=== PATIENT | female | born 1980 | race Caucasian/White ===

== ENCOUNTER 2020-10-26 21:50 | Emergency (ER) | payer BC ==
[~2020-10-26] VITALS: Ht 165.1 cm; Wt 63.5 kg
[2020-10-26 22:05] VITALS: BP_SYST 159
[2020-10-26] MEDS ORDERED: ONDANSETRON 4 MG ODT TAB PO ONE (22:15)
[2020-10-26 22:29] LABS: BILIRUBIN,URINE 2+ (NEGATIVE); BLOOD, URINE 2+ (NEGATIVE); CLARITY/URINE SL CLOUDY (CLEAR); COLOR,URINE YELLOW (YELLOW); GLUCOSE,URINE NEGATIVE (NEGATIVE); KETONES,URINE 3+ (NEGATIVE); LEUKOCYTE ESTERASE ,URINE TRACE (NEGATIVE); NITRITE, URINE NEGATIVE (NEGATIVE); PROTEIN URINE 2+ (NEGATIVE); UROBILINOGEN,URINE 0.2 (0.2-1.0)
[2020-10-26] MEDS ORDERED: KETOROLAC TROMETHAMINE 60 MG/2 ML VIAL IM ONE (22:45)
[2020-10-26] MEDS ORDERED: KETOROLAC TROMETHAMINE 30 MG VIAL ONE (22:51)
[2020-10-26 22:53] LABS: BACTERIA,URINE FEW /HPF (None Seen)
[2020-10-27 01:18] LABS: CALCIUM 8.9 mg/dL (8.4-11.0); CREATININE 0.96 mg/dL (0.55-1.30); POTASSIUM 3.9 mmol/L (3.5-5.1)
[2020-10-27 01:23] LABS: BASOPHILS % (AUTO) 0.1 % (0.0-2.0); HEMATOCRIT 40.3 % (36-48); HEMOGLOBIN 13.3 g/dL (12.0-16.0); LYMPHOCYTES # (AUTO) 1.1 K/uL (1.0-5.5); MEAN CORPUSCULAR HEMOGLOBIN 31 pg (27-31); MEAN CORPUSCULAR HGB CONC 33 % (32-36); MEAN CORPUSCULAR VOLUME 95 fL (79.0-98.0); MONOCYTES # (AUTO) 0.9 K/uL (0.0-1.0); MONOCYTES % (AUTO) 6.3 % (1.7-9.3); NEUTROPHILS # (AUTO) 11.9 K/uL (1.8-7.7); NEUTROPHILS % (AUTO) 85.6 % (40.0-70.0); PLATELET COUNT (AUTO) 215 K/uL (130-430); RED BLOOD CELL COUNT(AUTO) 4.25 MIL/uL (4.2-6.2); RED CELL DISTRIBUTION WIDTH 12.7 % (9.0-15.0)
[2020-10-27 01:29] LABS: TOTAL BILIRUBIN 0.6 mg/dL (0.0-1.0)
[2020-10-27 01:45] VITALS: BP_SYST 150
== END 2020-10-27 01:45 | disposition home or self-care (01) ==
LOC: SED 21:50
DX: N39.0 Urinary tract infection, site not specified (principal); R11.10 Vomiting, unspecified
CPT/HCPCS: 36415; 76830; 76857; 80053; 81000; 81025; 83690; 85025; 87086; 96372; 99284; J1885; Q0162

== ENCOUNTER 2020-10-27 06:39 | Inpatient (IN) | payer BC, SELFPAY ==
[~2020-10-27] VITALS: Ht 165.1 cm; Wt 70.3 kg
[2020-10-27 06:40] VITALS: BP_SYST 130
--- NOTE | 2020-10-27 06:55 | NUR ---
PT PLACED IN ER BED 07 BE DLOW AND LOCKED WITH BED RAILS UP
--- NOTE | 2020-10-27 06:56 | NUR ---
PT RETURNED BACK TO ER AFTER BEING DISCHARGED AT 0145 PT STATES THAT HER LLQ PAIN 7/10 SHARP PAIN RADIATING TO HER BILATERAL LOWER BACK PT STATES SHE IS NAUSEA BUT NO VOMITING SINCE BEING DISCHARGED. PT HAS BEEN ABLE TO URINATE NO BLEEDING, NO BURNING OR STINGING OR DIFFICULTY URINATING. PT HAS NO MEDICAL HISTORY, NO KNOWN ALLERGIES, AND TAKES NO MEDICATIONS DAILY. PT VITAL SIGNS STABLE WILL CONTINUE TO MONITOR
--- NOTE | 2020-10-27 07:02 | NUR ---
ER MD DA SILVA AT BEDSIDE EVALUATING PT
--- NOTE | 2020-10-27 07:06 | NUR ---
BEDSIDE REPORT GIVEN TO TECHNOLOGY INSTRUCTOR ОЛЬГА WHO WILL ASSUME CARE OF PT
[2020-10-27] MEDS ORDERED: NACL 0.9% 1,000 ML IV ONE (07:15)
[2020-10-27] MEDS ORDERED: ONDANSETRON HCL 4 MG/2 ML VIAL IVP ONE (07:15)
[2020-10-27] MEDS ORDERED: MORPHINE 4 MG/ML INJ. SYRINGE IVP ONE (07:15)
--- NOTE | 2020-10-27 07:18 | NUR ---
Patient transported to radiology via WHEELCHAIR, accompanied by STAFF .
--- NOTE | 2020-10-27 07:25 | NUR ---
# 20 gauge angiocath placed to RAC . Use of asceptic technique. Opsite placed over site. Blood return noted. Blood for lab drawn from site. Flushed with 10 cc of normal saline. No evidence of infiltration noted. Patient tolerated well.
--- NOTE | 2020-10-27 07:30 | NUR ---
Returned from radiology, back to [facility].
--- NOTE | 2020-10-27 07:58 | NUR ---
Medicated per MD orders. IVF infusing with no s/s of infiltration at this time. Will cont to monitor
[2020-10-27] MEDS ORDERED: PIPERACILLIN/TAZO 3.375 GM in NS 50 ML IV ONE (08:30)
--- NOTE | 2020-10-27 08:45 | NUR ---
Radiology staff at for ultrasound.
[2020-10-27] MEDS ORDERED: PIPERACILLIN/TAZOBACTAM 3.375 GM/VIAL (ZOSYN) IV ONE (08:52)
[2020-10-27] MEDS ORDERED: ONDANSETRON HCL 4 MG/2 ML VIAL IVP PRN (10:30)
[2020-10-27] MEDS ORDERED: LR 1,000 ML IV ONE (10:30)
[2020-10-27] MEDS ORDERED: MORPHINE 2 MG/ML INJ. SYRINGE ONE (10:38)
[2020-10-27] MEDS: MORPHINE 2 MG/ML INJ. SYRINGE IVP PRN ×4 (10:41→20:52)
[2020-10-27 13:20] VITALS: BP_SYST 130
[2020-10-27 18:21] LABS: INR 1.1 (0.8-1.2); PROTHROMBIN TIME 10.8 SECS (9.5-12.5)
[2020-10-27 20:00] VITALS: BP_SYST 149
[2020-10-27] MEDS: PIPERACILLIN/TAZO 3.375/DEX-IS 50 ML IV SCH (20:47)
[2020-10-27] MEDS: LR 1,000 ML IV SCH (20:48)
[2020-10-27 22:33] LABS: HCG,QUAL RESULT NEGATIVE (NEGATIVE)
[2020-10-27 22:39] LABS: BILIRUBIN,URINE 1+ (NEGATIVE); BLOOD, URINE 3+ (NEGATIVE); COLOR,URINE YELLOW (YELLOW); GLUCOSE,URINE NEGATIVE (NEGATIVE); KETONES,URINE 2+ (NEGATIVE); LEUKOCYTE ESTERASE ,URINE TRACE (NEGATIVE); NITRITE, URINE NEGATIVE (NEGATIVE); PROTEIN URINE 1+ (NEGATIVE)
[2020-10-27 22:59] LABS: CLARITY/URINE HAZY (CLEAR)
[2020-10-27 23:14] LABS: BACTERIA,URINE FEW /HPF (None Seen)
[2020-10-27 23:15] LABS: MUCUS,URINE 2+ /LPF (None Seen)
[2020-10-28] MEDS: PIPERACILLIN/TAZO 3.375/DEX-IS 50 ML IV SCH ×4 (00:14→17:03)
[2020-10-28] MEDS: MORPHINE 2 MG/ML INJ. SYRINGE IVP PRN ×5 (00:17→23:37)
[2020-10-28] MEDS: LR 1,000 ML IV SCH ×3 (03:45→23:45)
[2020-10-28 06:32] LABS: INR 1.1 (0.8-1.2); PROTHROMBIN TIME 11.3 SECS (9.5-12.5)
[2020-10-28 06:34] LABS: BASOPHILS % (AUTO) 0.2 % (0.0-2.0); HEMOGLOBIN 13.1 g/dL (12.0-16.0); LYMPHOCYTES # (AUTO) 1.7 K/uL (1.0-5.5); LYMPHOCYTES % (AUTO) 9.7 % (20.5-51.5); MEAN CORPUSCULAR HEMOGLOBIN 32 pg (27-31); MEAN CORPUSCULAR HGB CONC 34 % (32-36); MEAN CORPUSCULAR VOLUME 94 fL (79.0-98.0); MONOCYTES # (AUTO) 1.5 K/uL (0.0-1.0); MONOCYTES % (AUTO) 8.6 % (1.7-9.3); NEUTROPHILS # (AUTO) 14.1 K/uL (1.8-7.7); NEUTROPHILS % (AUTO) 81.5 % (40.0-70.0); PLATELET COUNT (AUTO) 198 K/uL (130-430); RED BLOOD CELL COUNT(AUTO) 4.14 MIL/uL (4.2-6.2); RED CELL DISTRIBUTION WIDTH 12.8 % (9.0-15.0); WHITE BLOOD COUNT (AUTO) 17.3 K/uL (4.8-10.8)
[2020-10-28 06:53] LABS: ALBUMIN 2.9 g/dL (3.4-4.8); CALCIUM 8.6 mg/dL (8.4-11.0); CREATININE 0.92 mg/dL (0.55-1.30); POTASSIUM 3.8 mmol/L (3.5-5.1); TOTAL BILIRUBIN 0.9 mg/dL (0.0-1.0)
[2020-10-28 08:31] VITALS: BP_SYST 120
[2020-10-28 12:18] VITALS: BP_SYST 129
[2020-10-28] MEDS ORDERED: fentaNYL CITRATE/PF 100 MCG/2 ML AMP IVP PRN (13:00)
[2020-10-28] MEDS ORDERED: ONDANSETRON HCL 4 MG/2 ML VIAL IVP PRN (13:00)
[2020-10-28] MEDS ORDERED: HYDROmorphone 1 MG INJ. 1 MG/ML AMPUL IVP PRN (13:45)
[2020-10-28] MEDS ORDERED: NALOXONE HCL 0.4 MG/ML AMP (NARCAN) IVP PRN (13:45)
[2020-10-28] MEDS: fentaNYL CITRATE/PF 100 MCG/2 ML AMP IVP PRN ×2 (14:15→14:20)
[2020-10-28] MEDS ORDERED: fentaNYL CITRATE/PF 100 MCG/2 ML AMP ONE (14:19)
--- NOTE | 2020-10-28 15:32 | NUR ---
PATIENT ARRIVED FROM SURGERY. VSS. PATIENT AWAKE AND ALERT. STERI STRIPS INTACT, WITH TRAM DRAIN. IV FLUID RUNNING AT 100ML/HR.
[2020-10-28 16:47] VITALS: BP_SYST 126
[2020-10-29] VITALS: BP_SYST 121
[2020-10-29] MEDS: MORPHINE 2 MG/ML INJ. SYRINGE IVP PRN ×4 (03:22→14:33)
[2020-10-29 06:44] LABS: BASOPHILS % (AUTO) 0.3 % (0.0-2.0); EOSINOPHILS % (AUTO) 0.4 % (0.0-4.0); HEMATOCRIT 33.9 % (36-48); HEMOGLOBIN 11.8 g/dL (12.0-16.0); LYMPHOCYTES # (AUTO) 1.6 K/uL (1.0-5.5); LYMPHOCYTES % (AUTO) 14.9 % (20.5-51.5); MEAN CORPUSCULAR HEMOGLOBIN 33 pg (27-31); MEAN CORPUSCULAR HGB CONC 35 % (32-36); MEAN CORPUSCULAR VOLUME 94 fL (79.0-98.0); MONOCYTES # (AUTO) 0.9 K/uL (0.0-1.0); MONOCYTES % (AUTO) 8.4 % (1.7-9.3); NEUTROPHILS # (AUTO) 8.2 K/uL (1.8-7.7); PLATELET COUNT (AUTO) 196 K/uL (130-430); RED BLOOD CELL COUNT(AUTO) 3.61 MIL/uL (4.2-6.2); RED CELL DISTRIBUTION WIDTH 12.7 % (9.0-15.0); WHITE BLOOD COUNT (AUTO) 10.8 K/uL (4.8-10.8)
[2020-10-29 06:51] LABS: ALBUMIN 2.5 g/dL (3.4-4.8); CALCIUM 8.3 mg/dL (8.4-11.0); CREATININE 0.83 mg/dL (0.55-1.30); POTASSIUM 3.5 mmol/L (3.5-5.1); TOTAL BILIRUBIN 0.6 mg/dL (0.0-1.0)
[2020-10-29] MEDS: PIPERACILLIN/TAZO 3.375/DEX-IS 50 ML IV SCH ×3 (06:52→11:20)
[2020-10-29 08:50] VITALS: BP_SYST 128
[2020-10-29] MEDS: LR 1,000 ML IV SCH (10:22)
[2020-10-29 12:49] VITALS: BP_SYST 116
[2020-10-29 14:03] VITALS: BP_SYST 130
[2020-10-29] MEDS ORDERED: HYDR-4272 PO (15:05)
[2020-10-29] MEDS ORDERED: CIPR-211 PO (15:05)
--- NOTE | 2020-10-29 15:28 | NUR ---
PATIENT IS BEING DISCHARGED TO HOME. NO ISSUES NOTED. ALL INFORMATION GIVEN AND EXPLAINED TO THE PATIENT. PATIENT AWARE TO CALL FOR FOLLOW UP APPOINTMENT, IV OUT AND INTACT, VSS, PAIN MEDICATION GIVEN OVER AN HOUR AGO SO NO IMMEDIATE PAIN NOTED, DRESSING CHANGED FROM THE DRAIN BEING PULLED, CARE EXPLAINED TO THE PATIENT WELL. PAPERWORK SIGNED AND IN CHART WELL PRESCRIPTIONS GIVEN TO PATIENT. PATIENT ESCORTED VIA WHEELCHAIR BY STAFF.
== END 2020-10-29 16:35 | disposition home or self-care (01) | DRG 854 ==
LOC: SED 06:39 → SMU 10:25
PROVIDERS: ADMIT Surgery; ATTEND Surgery
PROC: 0FT44ZZ Resection of Gallbladder, Percutaneous Endoscopic Approach (ICD-10-PCS; principal; 2020-10-28 12:00)
DX: A41.9 Sepsis, unspecified organism (principal); K81.0 Acute cholecystitis; K66.0 Peritoneal adhesions (postprocedural) (postinfection); Z20.822 Contact with and (suspected) exposure to COVID-19
CPT/HCPCS: 36415; 76376; 76705; 80053; 81000-TC; 84703; 85025; 85610-TC; 85730-TC; 86886; 86900; 86901; 87040-TC; 87081; 88304; 96374; 96375; J1170; J2270; J2405; J2543; J3010

== ENCOUNTER 2024-05-26 00:57 | Emergency (ER) | payer BC ==
[~2024-05-26] VITALS: Ht 165.1 cm; Wt 68.0 kg
[~2024-05-26 00:57] MED LIST: CIPR500T5 PO; HYDR-4272 PO
[2024-05-26 01:10] VITALS: BP_SYST 142; PULSE 91; RESP 20; TEMP 98; O2SAT 96
[2024-05-26] MEDS: KETOROLAC TROMETHAMINE 60 MG/2 ML VIAL IM ONE (01:36)
[2024-05-26] MEDS ORDERED: IBUP-1969 PO (02:09)
[2024-05-26] MEDS ORDERED: HYDR-3917 PO (02:09)
[2024-05-26] MEDS ORDERED: MORPHINE 4 MG INJ. 4 MG/ML VIAL IVP ONE (02:15)
[2024-05-26] MEDS: MORPHINE 4 MG INJ. 4 MG/ML VIAL IM ONE (02:53)
[2024-05-26 02:56] VITALS: BP_SYST 142; PULSE 91; RESP 20; TEMP 98; O2SAT 96
== END 2024-05-26 02:55 | disposition home or self-care (01) ==
LOC: SED 00:57
DX: S92.352A Displaced fracture of fifth metatarsal bone, left foot, initial encounter for closed fracture (principal); S60.212A Contusion of left wrist, initial encounter; W17.4XXA Fall from dock, initial encounter; Y93.89 Activity, other specified; Y92.89 Other specified places as the place of occurrence of the external cause; Y99.8 Other external cause status
CPT/HCPCS: 99284; 29515; 73110; 73610; 73630; 96372; J1885; J2270